=== PATIENT | male | born 1955 | race African-American/Black ===

== ENCOUNTER 2018-11-09 13:54 | Emergency (ER) | payer MEDICAID ==
[~2018-11-09] VITALS: Ht 165.1 cm; Wt 65.8 kg
[2018-11-09] MEDS ORDERED: KETOROLAC 30MG/ML VIAL IV ONE (18:00)
[2018-11-09] MEDS ORDERED: LORAZEPAM 2MG/ML CPJ IV ONE (18:00)
[2018-11-09] MEDS ORDERED: BACITRACIN ZINC OINT UDPKT TOP ONE (18:00)
[2018-11-09] MEDS ORDERED: KETOROLAC 15MG/ML VIAL IV NR (18:15)
[2018-11-09 18:22] LABS: BASOPHILS % 0.7 % (0.0-2.0); EOSINOPHILS % 2.6 % (0.0-5.0); HEMATOCRIT. 39.1 % (42.0-52.0); HEMOGLOBIN. 13.1 g/dL (14.0-18.0); LYMPHOCYTES % 18.6 % (20.0-50.0); MEAN CORPUSCULAR HEMOGLOBIN 30.6 pg (28.0-32.0); MEAN CORPUSCULAR VOLUME 91.1 fL (80.0-94.0); MEAN PLATELET VOLUME 8.8 fl (7.4-10.4); MONOCYTES % 8.7 % (2.0-8.0); NEUTROPHILS % 69.4 % (40.0-76.0); PLATELET 200 x1000/uL (130-400); RED BLOOD CELL COUNT 4.29 mill/uL (4.7-6.1); RED CELL DISTRIBUTION WIDTH 15.7 % (11.6-14.6)
[2018-11-09 18:27] LABS: CHLORIDE 109 mEq/L (98-107)
[2018-11-09 21:51] VITALS: BP 135/71
== END 2018-11-09 22:18 | disposition home or self-care (01) ==
LOC: ER 13:54
DX: R06.00 Dyspnea, unspecified (principal); R22.0 Localized swelling, mass and lump, head; Z88.3 Allergy status to other anti-infective agents; Z88.2 Allergy status to sulfonamides
CPT/HCPCS: 36415; 71045; 80053; 83880; 84484; 85025; 93005; 96374; 96375; 99284; J1885; J2060; Z7610

== ENCOUNTER 2018-11-11 06:50 | Emergency (ER) | payer MEDICAID ==
[~2018-11-11] VITALS: Ht 180.3 cm; Wt 75.0 kg
[2018-11-11 07:11] VITALS: BP 138/86
[2018-11-11] MEDS: LORAZEPAM 1MG TABLET PO ONE ×2 (07:45→07:56)
[2018-11-11 08:12] LABS: BASOPHILS % 0.7 % (0.0-2.0); EOSINOPHILS % 3.7 % (0.0-5.0); HEMATOCRIT. 34.5 % (42.0-52.0); HEMOGLOBIN. 11.5 g/dL (14.0-18.0); LYMPHOCYTES % 14.4 % (20.0-50.0); MEAN CORPUSCULAR HEMOGLOBIN 30.2 pg (28.0-32.0); MEAN CORPUSCULAR VOLUME 90.9 fL (80.0-94.0); MONOCYTES % 9.3 % (2.0-8.0); NEUTROPHILS % 71.9 % (40.0-76.0); PLATELET 205 x1000/uL (130-400); RED CELL DISTRIBUTION WIDTH 15.3 % (11.6-14.6)
[2018-11-11 08:17] LABS: CHLORIDE 111 mEq/L (98-107)
== END 2018-11-11 11:34 | disposition home or self-care (01) ==
LOC: ER 07:20
DX: T86.822 Skin graft (allograft) (autograft) infection (principal); R06.02 Shortness of breath; R06.00 Dyspnea, unspecified; L91.0 Hypertrophic scar; F41.9 Anxiety disorder, unspecified; Z88.2 Allergy status to sulfonamides; Z98.890 Other specified postprocedural states
CPT/HCPCS: 36415; 71045; 83880; 84484; 93005; 99284

== ENCOUNTER 2018-11-14 21:35 | Emergency (ER) | payer MEDICAID ==
[~2018-11-14] VITALS: Ht 180.3 cm; Wt 75.0 kg
[2018-11-14] MEDS ORDERED: KETOROLAC 30MG/ML VIAL IV STA (23:39)
[2018-11-14] MEDS ORDERED: LORAZEPAM 2MG/ML CPJ IV ONE (23:45)
[2018-11-15 00:14] LABS: BASOPHILS % 0.6 % (0.0-2.0); HEMATOCRIT. 37.5 % (42.0-52.0); HEMOGLOBIN. 12.5 g/dL (14.0-18.0); LYMPHOCYTES % 23.1 % (20.0-50.0); MEAN CORPUSCULAR HEMOGLOBIN 30.4 pg (28.0-32.0); MEAN CORPUSCULAR VOLUME 91.2 fL (80.0-94.0); MEAN PLATELET VOLUME 8.9 fl (7.4-10.4); MONOCYTES % 10.9 % (2.0-8.0); NEUTROPHILS % 60.4 % (40.0-76.0); PLATELET 209 x1000/uL (130-400); RED BLOOD CELL COUNT 4.11 mill/uL (4.7-6.1); RED CELL DISTRIBUTION WIDTH 15.5 % (11.6-14.6)
[2018-11-15 00:21] LABS: CHLORIDE 111 mEq/L (98-107)
[2018-11-15] MEDS ORDERED: KETOROLAC 15MG/ML VIAL IV ONE (01:30)
[2018-11-15] MEDS ORDERED: BACITRACIN ZINC OINT UDPKT TOP ONE (02:30)
[2018-11-15 02:36] VITALS: BP 153/92
== END 2018-11-15 02:51 | disposition home or self-care (01) ==
LOC: ER 21:35
DX: R22.0 Localized swelling, mass and lump, head (principal); R06.00 Dyspnea, unspecified; F41.9 Anxiety disorder, unspecified; Z88.2 Allergy status to sulfonamides; Z98.890 Other specified postprocedural states; Z88.8 Allergy status to other drugs, medicaments and biological substances
CPT/HCPCS: 36415; 71045; 80053; 83880; 84484; 85025; 93005; 96374; 96375; 96376; 99284; J1885; J2060; Z7610